=== PATIENT | male | born 1955 | race Caucasian/White ===

== ENCOUNTER → 2019-07-02 | Outpatient (CLI) | payer OTHER ==
--- NOTE | 2019-07-02 12:04 | KCIC ---
HAND BILAT 2V 07/02/2019 12:00 AM INDICATION: Pain in joints of both hands COMPARISON: None available. TECHNIQUE: 2 views of each hand are provided. FINDINGS: There is no acute fracture or dislocation. Bone mineralization is within normal limits. Joint space narrowing is identified involving the metacarpophalangeal joint of the first digit as well as the interphalangeal joint of the first digit bilaterally. There is moderate osteoarthrosis of the first interphalangeal joint bilaterally with joint space narrowing, subcortical sclerosis and marginal osteophytosis. Medial subluxation is identified involving the third carpophalangeal joint bilaterally. Mild degenerative changes of the right lunate are noted. Regional soft tissues are within normal limits. There is no soft tissue gas or osseous erosion. IMPRESSION: 1. Moderate osteoarthrosis of the interphalangeal joint of the first digit bilaterally. Next on 2. Mild osteoarthrosis the first metacarpophalangeal joint bilaterally. 3. There is mild subluxation of the third metacarpophalangeal joint noted bilaterally. Correlate with any underlying history of rheumatoid arthritis. Electronically signed by: Jayne Minor MD (07/02/2019 12:01 PM) [id number]
== END | disposition home or self-care (01) ==
LOC: KCIC 10:04
PROVIDERS: ATTEND Family Medicine
DX: S63.215A Subluxation of metacarpophalangeal joint of left ring finger, initial encounter (principal); S63.214A Subluxation of metacarpophalangeal joint of right ring finger, initial encounter; M19.042 Primary osteoarthritis, left hand; M19.041 Primary osteoarthritis, right hand; X58.XXXA Exposure to other specified factors, initial encounter; Y93.89 Activity, other specified; Y92.89 Other specified places as the place of occurrence of the external cause; Y99.8 Other external cause status
CPT/HCPCS: 73120

== ENCOUNTER → 2021-07-02 | Outpatient (CLI) | payer MEDICARE ==
--- NOTE | 2021-07-02 14:26 | KCIC ---
EXAM: Bilateral hands 3 views. HISTORY: Bilateral hand joint pain. COMPARISON: None. FINDINGS: Bilateral third metacarpophalangeal osteoarthritis is severe. There is flattening of the th ird metacarpal heads on the right greater than left. Metacarpophalangeal osteoarthritis is mild elsew here on the left greater than right. There is mild bilateral first interphalangeal osteoarthritis. Along the second through fifth rays, th ere is minimal interphalangeal osteoarthritis. First carpometacarpal osteoarthritis is mild on the ri ght greater than left. No erosions are identified bilaterally. There is chondrocalcinosis of the triangular fibrocartilage c omplex bilaterally. A degenerative cyst is incidentally noted in the right scaphoid waist. IMPRESSION: 1. 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 Mild osteoarthritis elsewhere as above. 2. Chondrocalcinosis is usually a senescent finding. Correlate to exclude deposition diseases such as CPPD. Electronically signed by: Lori Fitzpatrick MD (07/02/2021 2:24 PM) [id number]
--- NOTE | 2021-07-02 14:29 | KCIC ---
EXAM: XR LUMBAR SPINE 4+V. HISTORY: Low back pain, bilateral lower extremity radiculopathy. COMPARISON: None. FINDINGS: There is slight retrolisthesis at L4-5. No acute fractures are identified. Mild wedging of the superior endplate of T12 is most likely developmental or chronic. Degenerative disc disease is mi ld to moderate throughout the lower thoracic spine through L5. IMPRESSION: 1. Slight retrolisthesis at L4-5. Mild to moderate diffuse degenerative disc disease. Electronically signed by: Lori Fitzpatrick MD (07/02/2021 2:27 PM) [id number]
== END ==
LOC: KCIC 11:44
PROVIDERS: ATTEND Family Medicine
DX: M51.16 Intervertebral disc disorders with radiculopathy, lumbar region (principal); M19.042 Primary osteoarthritis, left hand; M19.041 Primary osteoarthritis, right hand; M11.242 Other chondrocalcinosis, left hand; M11.241 Other chondrocalcinosis, right hand; M51.36 Other intervertebral disc degeneration, lumbar region; M54.5 Low back pain
CPT/HCPCS: 72110; 73130-50